=== PATIENT | female | born 1960 | race Caucasian/White ===

== ENCOUNTER → 2016-06-17 16:12 | Outpatient (CLI) | payer BC | END | disposition home or self-care (01) | LOC: D.MAMMO 10:15 | DX: Z12.31 Encounter for screening mammogram for malignant neoplasm of breast (principal) ==

== ENCOUNTER → 2017-01-06 07:42 | Outpatient (CLI) | payer BC ==
--- NOTE | 2017-01-09 06:53 | EMG ---
PATIENT:RAHUL CADET DATE OF SERVICE: 01/06/17 MEDICAL RECORD: [id number] DATE OF : 60 LOCATION: [facility] ADMISSION DATE: REFERRING PHYSICIAN: EARNEST AGUILERA MD INTERPRETING PHYSICIAN: EARNEST AGUILERA MD DATE OF SERVICE: 01/06/2017 REFERRED BY: Myself as an outpatient. DATE OF : 1960. DATE OF EXAMINATION: 01/06/2017. ELECTROMYOGRAPHIC DATA: Electromyographic examination is limited to both lower extremities. In the right lower extremity, right peroneal motor stimulation elicits a compound motor action potential with a distal latency of 2.7 milliseconds, peak amplitude of 5 millivolts, and calculated conduction velocity of 51 meters per second. Right tibial motor stimulation elicits a compound motor action potential with a distal latency of 3.6 milliseconds, peak amplitude of 17 millivolts, and calculated conduction velocity of 47 meters per second. Antidromic right sural sensory stimulation elicits a response with a distal latency of 2.7 milliseconds, amplitude of 16 microvolts, and calculated conduction velocity of 48 meters per second. The right lower extremity H reflex recording at gastrocsoleus has a latency of 32 milliseconds. In the left lower extremity, left peroneal motor stimulation elicits a compound motor action potential with a distal latency of 3.2 milliseconds, peak amplitude of 3 millivolts, and calculated conduction velocity of 37 meters per second. Left tibial motor stimulation elicits a compound motor action potential with a distal latency of 3.8 milliseconds, peak amplitude of 19 millivolts, and calculated conduction velocity of 47 meters per second. Antidromic left sural sensory stimulation elicits a response with a distal latency of 2.8 milliseconds, amplitude of 8 microvolts, and calculated conduction velocity of 42 meters per second. The left median F wave has a latency of 32 milliseconds. Needle electrode examination is limited to both lower extremities as well. Muscles interrogated include the abductor hallucis, extensor digitorum brevis, abductor digiti quinti, tibialis anterior, medial gastrocnemius, vastus lateralis, semitendinosis and gluteus digna. There is no abnormality of insertional activity and no abnormal spontaneous activity is seen in all muscles interrogated. Motor unit potential morphology and the pattern of motor unit potential firing and recruitment is normal in all muscles sampled. INTERPRETATION: Electromyographic examination of both lower extremities is normal. There is no electrical evidence of a lumbosacral radiculopathy or other lesion of the lower motor neuron in the lower extremities at this time. There is no evidence of active denervation. TRANSINT:[id number] Voice Confirmation ID: [id number] DOCUMENT ID: [id number] ELECTROMYGRAM/NERVE CONDUCTION [id number] RAHUL CADET DONALD P MD at [id number] CC: [id number] DICTATION DATE: 01/06/17 0849 CHEMISTRY LAB INSTRUCTOR: 01/06/17 1114 DEP CLI 01/06/17 [facility] [address] [place] [address]
== END | disposition home or self-care (01) ==
LOC: D.CN 12-23 08:00
DX: R55 Syncope and collapse (principal); R53.1 Weakness

== ENCOUNTER → 2019-03-23 12:52 | Outpatient (CLI) | payer BC | END | disposition home or self-care (01) | LOC: D.RT 12:52 | PROVIDERS: ATTEND Internal Medicine Pulmonary Disease | DX: R06.09 Other forms of dyspnea (principal) ==